=== PATIENT | male | born 1965 | race Caucasian/White ===

== ENCOUNTER → 2017-08-20 | Day surgery (SDC) | payer BC ==
[~2017-08-20] MED LIST: CIPR500T94 PO; DOCU-109 PO; HYDR-2678 PO; IV RINGERS,LACTATED 1000ML 1,000 ML IV SCH; LISI10TA2 PO; METF500T4 PO; ONDA4TAB10 SL; OXYC-323 PO; PROPOFOL 40 ML IV ONE
[2017-08-20 09:55] VITALS: BP 120/64
--- NOTE | 2017-08-23 14:23 | PATHOLOGY ---
PATHOLOGY REPORT * * * * * * * * FINAL DIAGNOSIS: A. Colon biopsy, sigmoid polyp: - Hyperplastic polyp showing mild chronic inflammation. B. Random colon biopsy: - No significant pathologic abnormalities. COMMENT: Sections of the sigmoid colon biopsy reveal a hyperplastic polyp showing mild chronic inflammation. There are no adenomatous changes or evidence of malignancy. Sections of the random colon biopsy reveal multiple segments of colonic mucosa containing several small, focally hyperplastic, mucosal-associated lymphoid aggregates. There is no evidence of a chronic destructive colitis, lymphocytic colitis, or collagenous colitis. (JPM:mml; 08/23/2017) REPORT ELECTRONICALLY SIGNED BY: Brandin Griggs M.D. DATE/TIME: 08/23/2017 14:22 * * * * * * * * GROSS PATHOLOGY: A. Received in formalin labeled "Carline Sharma, sigmoid polyp," is a segment of brooks soft tissue measuring 0.3 cm in maximum dimension. The specimen is submitted entirely in cassette A1. B. Received in formalin labeled "aCrline Sharma, random colon BX's," are multiple (more than 10) segments of brooks soft tissue measuring 2.3 x 1.1 x 0.3 cm in aggregate dimensions and ranging from 0.1 to 0.5 cm in maximum dimension. The specimen is submitted entirely in cassette B1. (TSD; 08/20/2017) INITIAL CPT CODE(S): A; 05460 B; 85063 Professional services performed [place] [facility] [place] [address] Technical services performed by [facility] at [address] [place] [address], [address], [place] [address]. SPECIMEN(S) RECEIVED: A.Sigmoid polyp B.Random colon biopsies CLINICAL HISTORY: Diarrhea PATIENT: CARLINE SHARMA /AGE: 301/04/1965 (Age: 52) PATIENT #: [id number] ALT CASE #: SPECIMEN COLLECTION DATE: 08/20/2017 SPECIMEN RECEIVED DATE: 08/20/2017 [facility] - [address] [place] [address] - PHONE: [phone] * * * END OF REPORT * * *
== END | disposition home or self-care (01) ==
LOC: ENDOS 08:14
PROVIDERS: ATTEND Internal Medicine Gastroenterology
DX: D12.5 Benign neoplasm of sigmoid colon (principal); D64.0 Hereditary sideroblastic anemia; K57.30 Diverticulosis of large intestine without perforation or abscess without bleeding; E78.00 Pure hypercholesterolemia, unspecified; I10 Essential (primary) hypertension; E66.9 Obesity, unspecified; K21.9 Gastro-esophageal reflux disease without esophagitis; F41.9 Anxiety disorder, unspecified; F32.9 Major depressive disorder, single episode, unspecified; Z87.39 Personal history of other diseases of the musculoskeletal system and connective tissue; Z86.39 Personal history of other endocrine, nutritional and metabolic disease; Z72.0 Tobacco use
CPT/HCPCS: 45380; 88305; J2704